=== PATIENT | male | born 1985 | race Two or more races ===

== ENCOUNTER 2024-11-04 05:55 | Emergency (ER) | payer OTHER ==
[~2024-11-04] VITALS: Ht 172.7 cm; Wt 87.5 kg
[~2024-11-04 05:55] MED LIST: HYDR-4383 PO; ONDA-243 PO
--- NOTE | 2024-11-04 06:24 | Physician Documentation ---
History of Present Illness ~ Chief Complaint: Numbness Stated Complaint: LEFT SIDED FACIAL NUMBNESS Time Seen by MD: 06:01 HPI 39-year-old male presenting with left-sided facial numbness and weakness He tells me that over the past couple of days he has had some discomfort around his left ear. Today when he woke up he noticed that the left side of his face was a little bit droopy, it was hard to close his eye and he could not smile normal. He reports some mild numbness around the left side of his mouth. He denies any other associated symptoms. 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 He has a history of herpes infections and so he took 2 g of Valtrex this morning. Reports a history of hypertension, and does take medication for this. He reports that his father had a stroke. Medication Reconciliation Allergies: Coded Allergies: No Known Allergies (Unverified , 09/22/14) Scheduled Prednisone* (Prednisone*), 3 TAB PO DAILY Valacyclovir HCl (Valacyclovir), 1 TAB PO Q8H Scheduled PRN Hydrocodone/Acetaminophen ([place] 5-325 Tablet), 1-2 TABLET PO Q8HPRN PRN for pain ONDANSETRON ODT 4mg tablet (Ondansetron Odt), 1 TABLET PO Q6H PRN for nausea/vomiting Past Medical History Past Medical History: Asthma Past Surgical History: no surgical history Alcohol Use: None Review of Systems Constitutional: Denies: fever Neurological: Reports: left sided numbness, left sided weakness Physical Exam Vital Signs: Temperature: 98.2, Heart Rate: 75, Respiratory Rate: 16, BP: 134/83, Pulse Oximetry: 99, Weight: 87.500 Oxygen Flow Rate: 0 General Appearance General: This is a pleasant and healthy appearing young man sitting quietly in bed HEENT: No trauma to the head. No rashes including no vesicular rashes on the face. Left ear: There is no significant erythema or purulence behind the tympanic membrane or in the external ear canal. No lesions or vesicles in the ear. Heart: Regular rate and rhythm, no murmur, normal-appearing peripheral perfusion Lungs: Clear breath sounds bilateral, normal work of breathing, normal oxygen saturation on room air Abdomen: Soft, nondistended, nontender all quadrants Neuro: Alert and oriented. The patient has an obvious left-sided facial droop that involves the forehead, eye, and mouth. He reports mild sensation difference in the left cheek compared to the right. Pupils are equal. Normal strength and sensation in all 4 extremities. He ambulates without difficulty. Psychiatric: Appears mildly anxious about his condition but is cooperative with exam Progress Results/Orders Results/Orders Orders - ANDRES GOMEZ MD Ct Head (11/04/24 06:30) Completed Orders - ANDRES GOMEZ MD Ct Head (11/04/24 06:30) Prednisone Tablet (Prednisone Tablet) (11/04/24 06:25) Medications Received in ER Medications (Trade) Dose Ordered Sig/Donny Route PRN Reason Start Time Stop Time Status Last Admin Dose Admin (predniSONE tablet) 60 mg ONCE ONCE PO 11/04/24 06:25 11/04/24 06:26 DC 11/04/24 06:39 60 MG Vital Signs 11/04/24 11/04/24 06:00 06:47 Temp 98.2 Pulse 75 Resp 16 B/P (MAP) 134/83 Pulse Ox 99 O2 Flow Rate 0 Laboratory Tests Test 11/04/24 06:06 Glucometer 99 EKG/XRAY/CT/US/VASC/MRI CT : Impression I personally reviewed the CT scan, and this shows no mass or intracranial hemorrhage, no obvious stroke Medical Decision Making Differential Dx:Considerations: Include: Kapadia's Palsey, CVA, Mass lesion, Other (Viral syndrome) Additional Information The patient presents with left facial weakness and numbness. 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 He has no findings to suggest a stroke. No evidence of ear infection. No evidence of zoster rash or lesions in the ear. A head CT was obtained, which did not show a mass or other dangerous process. He was reassured, given home care instructions, discharged with prednisone and valacyclovir. Return precautions given. Departure Time of Disposition: 07:20 Disposition: HOME / SELF CARE / HOMELESS Impression: Primary Impression: Facial paralysis/Raymond palsy Condition: Stable Discharge Instructions: Kapadia's Palsy, Adult Referrals: NO PRIMARY CARE PROVIDER (PCP) Prescriptions Prednisone* (Prednisone*) 20 Mg Tablet 3 TAB PO DAILY for 6 Days, #18 TAB Prov: ANDRES GOMEZ MD 11/04/24 Valacyclovir HCl (Valacyclovir) 1,000 Mg Tablet 1 TAB PO Q8H for 7 Days, #21 TAB 0 Refills Prov: ANDRES GOMEZ MD 11/04/24 Education Educated: Patient Educated regarding: diagnosis, treatment, need for follow up Signature Scribe Signature: na Attestation: ANDRES Watt MD Nov 04, 2024 06:24
--- NOTE | 2024-11-04 07:10 | RADIOLOGY REPORT ---
EXAM: CT CT HEAD INDICATION: Left facial droop/numb TECHNIQUE: CT of the head without intravenous contrast. Coronal and sagittal reformatted images are s ubmitted. Radiation Dose : 1. Head: CT Dose: CTDI volume is 63.6 mGy. Dose-length product is 1196.4 mGy*cm The dose indicators for CT are the volume Computed Tomography (CT) Dose Index (CTDIvol) and the Dose Length Product (DLP), and are measured in units of mGy and mGy-cm, respectively. These indicators are not patient dose, but values generated from the CT scanner acquisition factors. The report includes radiation exposure data for exposures received during this examination. All CT scans at this medical facility are performed using dose modulation techniques as appropriate to a performed exam including the following: Automated exposure control was utilized; adjustment of the MA and/or KV according to patient size; and use of iterative reconstruction technique. COMPARISON: None FINDINGS: There is no evidence of acute intracranial hemorrhage, extra-axial collection, mass effect, midline s hift, herniation or hydrocephalus. The ventricles, sulci and cisterns are age appropriate. The purdy-white differentiation is intact. There is mucosal thickening in the maxillary sinuses. The mastoid air cells are clear. No depressed calvarial fracture. The surrounding soft tissues are unremarkable. IMPRESSION: 1. No acute intracranial abnormality.
[2024-11-04] MEDS ORDERED: VALA100031 PO (07:21)
[2024-11-04] MEDS ORDERED: PRED20TA PO (07:21)
[2024-11-04 07:29] VITALS: BP 114/71; PULSE 68; RESP 16; TEMP 98.2; O2SAT 97
== END 2024-11-04 07:36 | disposition home or self-care (01) ==
LOC: ER 05:56
DX: R29.810 Facial weakness (principal); I10 Essential (primary) hypertension; J45.909 Unspecified asthma, uncomplicated; Z79.899 Other long term (current) drug therapy
CPT/HCPCS: 70450; 82948; 99284; J7512